=== PATIENT | male | born 1955 | race Two or more races ===

== ENCOUNTER → 2021-02-20 | Outpatient (CLI) | payer OTHER ==
[~2021-02-20] MED LIST: FORTAMET500 MG; MELOXICAM15 MG PO; NORVASC10 MG; ROBAXIN-750750 MG PO; SYNTHROID88 MCG; TIZANIDINE HCL4 MG PO
== END | disposition home or self-care (01) ==
LOC: RAD 12:13
PROVIDERS: ATTEND Emergency Medicine Pediatric Emergency Medicine
DX: M47.22 Other spondylosis with radiculopathy, cervical region (principal); M47.812 Spondylosis without myelopathy or radiculopathy, cervical region

== ENCOUNTER 2021-05-20 13:43 | Outpatient (CLI) | payer OTHER | END 2021-05-20 13:44 | disposition home or self-care (01) | LOC: NUCLEAR 13:43 | DX: M85.80 Other specified disorders of bone density and structure, unspecified site (principal); M81.0 Age-related osteoporosis without current pathological fracture ==

== ENCOUNTER 2021-06-13 08:00 | Outpatient (CLI) | payer OTHER | END 2021-06-13 08:30 | disposition home or self-care (01) | LOC: PPH VACUNA 08:00 | DX: Z23 Encounter for immunization (principal) ==

== ENCOUNTER 2022-01-22 08:00 | Outpatient (CLI) | payer OTHER | END 2022-01-22 08:30 | disposition home or self-care (01) | LOC: PPH VACUNA 08:00 | PROVIDERS: ATTEND Emergency Medicine Pediatric Emergency Medicine | DX: Z23 Encounter for immunization (principal) ==

== ENCOUNTER 2022-07-16 08:00 | Outpatient (CLI) | payer OTHER | END 2022-07-16 08:05 | disposition home or self-care (01) | LOC: PPH VACUNA 08:00 | PROVIDERS: ATTEND Emergency Medicine Pediatric Emergency Medicine | DX: Z23 Encounter for immunization (principal) | CPT/HCPCS: 90686; G0008 ==

== ENCOUNTER 2022-09-11 11:56 | Outpatient (CLI) | payer OTHER | END 2022-09-11 12:06 | disposition home or self-care (01) | LOC: PPH VACUNA 11:56 | PROVIDERS: ATTEND Emergency Medicine Pediatric Emergency Medicine | DX: Z23 Encounter for immunization (principal) ==

== ENCOUNTER 2023-02-05 13:22 | Outpatient (CLI) | payer OTHER | END 2023-02-05 13:31 | disposition home or self-care (01) | LOC: SONOGRAMA 13:22 | PROVIDERS: ATTEND Otolaryngology | DX: R22.1 Localized swelling, mass and lump, neck (principal) ==

== ENCOUNTER 2023-02-26 11:24 | Outpatient (CLI) | payer OTHER | END 2023-02-26 11:28 | disposition home or self-care (01) | LOC: SONOGRAMA 11:24 | PROVIDERS: ATTEND Pathology Anatomic Pathology & Clinical Pathology | DX: R59.0 Localized enlarged lymph nodes (principal) ==

== ENCOUNTER 2023-04-17 12:45 | Outpatient (CLI) | payer OTHER | END 2023-04-17 12:58 | disposition home or self-care (01) | LOC: SONOGRAMA 12:45 | PROVIDERS: ATTEND Surgery Surgery of the Hand | DX: M15.0 Primary generalized (osteo)arthritis (principal) ==

== ENCOUNTER 2025-07-14 09:23 | Outpatient (CLI) | payer OTHER | END 2025-07-14 09:25 | disposition home or self-care (01) | LOC: SONOGRAMA 09:23 | PROVIDERS: ATTEND Internal Medicine | DX: E04.2 Nontoxic multinodular goiter (principal) ==

== ENCOUNTER 2025-07-27 12:34 | Outpatient (CLI) | payer OTHER | END 2025-07-27 12:35 | disposition home or self-care (01) | LOC: SONOGRAMA 12:34 | PROVIDERS: ATTEND Pathology Anatomic Pathology & Clinical Pathology | DX: D34 Benign neoplasm of thyroid gland (principal); E07.89 Other specified disorders of thyroid; E04.2 Nontoxic multinodular goiter ==